=== PATIENT | male | born 1965 | race Caucasian/White ===

== ENCOUNTER 2018-10-06 06:50 | Inpatient (IN) | payer OTHER ==
[~2018-10-06] VITALS: Ht 167.6 cm; Wt 76.4 kg
[2018-10-06 07:27] LABS: BASOPHILS % 0.3 % (0.0-2.0); EOSINOPHILS % 1.3 % (0.0-5.0); HEMATOCRIT. 48.6 % (42.0-52.0); HEMOGLOBIN. 16.6 g/dL (14.0-18.0); LYMPHOCYTES % 20.9 % (20.0-50.0); MEAN CORPUSCULAR HEMOGLOBIN 31.9 pg (28.0-32.0); MEAN CORPUSCULAR VOLUME 93.1 fL (80.0-94.0); MEAN PLATELET VOLUME 7.9 fl (7.4-10.4); MONOCYTES % 9.6 % (2.0-8.0); NEUTROPHILS % 67.9 % (40.0-76.0); PLATELET 269 x1000/uL (130-400); RED BLOOD CELL COUNT 5.22 mill/uL (4.7-6.1); RED CELL DISTRIBUTION WIDTH 14.3 % (11.6-14.6)
[2018-10-06 07:36] LABS: PROTHROMBIN TIME 10.1 sec (9.1-11.1)
[2018-10-06 07:53] LABS: CHLORIDE 105 mEq/L (98-107)
[2018-10-06 07:58] LABS: ETHANOL BLOOD < 10 mg/dL
[2018-10-06 08:00] LABS: LDL CHOLESTEROL 198 mg/dL (5-100)
[2018-10-06 11:26] LABS: CLARITY URINE CLEAR (CLEAR); COLOR URINE YELLOW (YELLOW); KETONES URINE TRACE (NEGATIVE); LEUKOCYTE ESTERASE URINE NEGATIVE (NEGATIVE); NITRITE URINE NEGATIVE (NEGATIVE); OCCULT BLOOD URINE NEGATIVE (NEGATIVE); PH URINE 5.5 (4.5-8.0); PROTEIN URINE NEGATIVE (NEGATIVE); UROBILINOGEN URINE 0.2 E.U./dL (0.2-1.0)
[2018-10-06 11:51] LABS: OPIATES URINE SCREEN NEGATIVE (NEGATIVE)
[2018-10-06 11:52] LABS: *AMPHETAMINES SCREEN URINE NEGATIVE (NEGATIVE); *BARBITURATES SCREEN URINE NEGATIVE (NEGATIVE); *BENZODIAZEPINES SCREEN URINE NEGATIVE (NEGATIVE); *COCAINE SCREEN URINE NEGATIVE (NEGATIVE); CANNABINOID URINE SCREEN NEGATIVE (NEGATIVE); PHENCYCLIDINE URINE SCREEN NEGATIVE (NEGATIVE)
[2018-10-06 11:53] LABS: METHADONE URINE SCREEN NEGATIVE (NEGATIVE)
[2018-10-06] MEDS ORDERED: DIPHENHYDRAMINE 50MG/ML VIAL IV ONE (12:45)
[2018-10-06] MEDS ORDERED: TRAMADOL 50MG TABLET PO PRN (13:30)
[2018-10-06] MEDS ORDERED: CLONIDINE 0.1MG TABLET PO PRN (13:30)
[2018-10-06] MEDS ORDERED: IPRATROPIUM/ALBUTEROL 0.5-3(2.5)MG/3ML NEB INH PRN (13:30)
[2018-10-06] MEDS ORDERED: NA PHOS,M-B/NA PHOS,DI-BA ENEMA 118ML PR PRN (13:30)
[2018-10-06] MEDS ORDERED: BUTALBITAL/ACETAMINOPHEN/CAFFEINE 50/325/40MG TABLET PO PRN (13:30)
[2018-10-06] MEDS ORDERED: ONDANSETRON HCL 4MG/2ML INJ IV PRN (13:30)
[2018-10-06] MEDS ORDERED: ACETAMINOPHEN 325MG TABLET PO PRN (13:30)
[2018-10-06] MEDS ORDERED: ZOLPIDEM TARTRATE 5MG TABLET PO PRN (13:30)
[2018-10-06] MEDS ORDERED: DOCUSATE SODIUM 100MG CAPSULE PO PRN (13:30)
[2018-10-06] MEDS ORDERED: GUAIFENESIN 200MG/10ML SUGAR FREE UDC PO PRN (13:30)
[2018-10-06] MEDS ORDERED: NITROGLYCERIN 0.4MG TABLET SL SL PRN (13:30)
[2018-10-06] MEDS ORDERED: MAGNESIUM/ALUMINUM HYDROXIDE/SIMETHICONE 30ML UDC PO PRN (13:30)
[2018-10-06] MEDS ORDERED: IOHEXOL-350 100 ML BOTTLE ONE (13:52)
[2018-10-06 16:00] VITALS: BP 139/95
[2018-10-06 16:15] VITALS: BP 139/95
[2018-10-06] MEDS: ASPIRIN 325MG EC TABLET PO SCH (18:00)
[2018-10-06 18:31] LABS: CREATINE KINASE 91 IU/L (39-308)
[2018-10-06 18:32] LABS: CREATINE KINASE MB FRACTION 1.2 ng/mL (0.5-3.6)
[2018-10-06] MEDS: KETOROLAC 15MG/ML VIAL IV PRN (18:48)
[2018-10-06 20:00] VITALS: BP 131/83
[2018-10-06] MEDS: ATORVASTATIN CALCIUM 40MG TABLET PO SCH (21:00)
[2018-10-06] MEDS: FAMOTIDINE 20MG TABLET PO SCH (21:00)
[2018-10-06] MEDS: ENOXAPARIN 40MG/0.4ML SYR SUBCUT SCH (21:26)
[2018-10-06] MEDS: DEXT 5%/LACTATED RINGERS 1,000 ML IV SCH (22:13)
[2018-10-06 22:45] LABS: CREATINE KINASE 90 IU/L (39-308)
[2018-10-06 22:46] LABS: CREATINE KINASE MB FRACTION 1.1 ng/mL (0.5-3.6)
[2018-10-07] VITALS: BP 123/80
[2018-10-07 04:00] VITALS: BP 116/68
[2018-10-07 08:00] VITALS: BP 129/78
[2018-10-07] MEDS: KETOROLAC 15MG/ML VIAL IV PRN ×2 (08:56→18:20)
[2018-10-07] MEDS: ASPIRIN 325MG EC TABLET PO SCH (09:00)
[2018-10-07] MEDS: FAMOTIDINE 20MG TABLET PO SCH ×2 (09:00→21:56)
[2018-10-07 12:00] VITALS: BP 115/76
[2018-10-07] MEDS: DEXT 5%/LACTATED RINGERS 1,000 ML IV SCH (14:11)
[2018-10-07] MEDS: PYRIDOSTIGMINE BROMIDE 60MG TABLET PO SCH ×2 (14:11→21:56)
[2018-10-07 16:00] VITALS: BP 133/83
[2018-10-07 20:00] VITALS: BP 113/72
[2018-10-07] MEDS: ATORVASTATIN CALCIUM 40MG TABLET PO SCH (21:56)
[2018-10-07] MEDS: ENOXAPARIN 40MG/0.4ML SYR SUBCUT SCH (21:56)
[2018-10-08] VITALS: BP 121/82
[2018-10-08 04:00] VITALS: BP 151/79
[2018-10-08] MEDS: PYRIDOSTIGMINE BROMIDE 60MG TABLET PO SCH ×3 (05:35→21:05)
[2018-10-08] MEDS: KETOROLAC 15MG/ML VIAL IV PRN ×2 (07:01→18:59)
[2018-10-08 08:00] VITALS: BP 104/61
[2018-10-08] MEDS: DEXT 5%/LACTATED RINGERS 1,000 ML IV SCH ×3 (09:30→21:16)
[2018-10-08] MEDS: ASPIRIN 325MG EC TABLET PO SCH (10:02)
[2018-10-08] MEDS: FAMOTIDINE 20MG TABLET PO SCH ×2 (11:58→21:05)
[2018-10-08 12:00] VITALS: BP 132/72
[2018-10-08 16:00] VITALS: BP 117/76
[2018-10-08 20:00] VITALS: BP 129/85
[2018-10-08] MEDS: ATORVASTATIN CALCIUM 40MG TABLET PO SCH (21:05)
[2018-10-08] MEDS: ENOXAPARIN 40MG/0.4ML SYR SUBCUT SCH (21:07)
[2018-10-09] VITALS: BP 113/65
[2018-10-09] MEDS: KETOROLAC 15MG/ML VIAL IV PRN ×3 (02:19→21:46)
[2018-10-09 04:00] VITALS: BP 117/87
[2018-10-09] MEDS: PYRIDOSTIGMINE BROMIDE 60MG TABLET PO SCH ×3 (05:51→21:17)
[2018-10-09 08:00] VITALS: BP 115/82
[2018-10-09] MEDS: ASPIRIN 325MG EC TABLET PO SCH (08:56)
[2018-10-09] MEDS: FAMOTIDINE 20MG TABLET PO SCH ×2 (08:56→21:17)
[2018-10-09 12:00] VITALS: BP 116/80
[2018-10-09] MEDS: DEXT 5%/LACTATED RINGERS 1,000 ML IV SCH (12:34)
[2018-10-09 19:07] VITALS: BP 120/82
[2018-10-09 20:00] VITALS: BP 133/88
[2018-10-09] MEDS: ENOXAPARIN 40MG/0.4ML SYR SUBCUT SCH (21:17)
[2018-10-09] MEDS: ATORVASTATIN CALCIUM 40MG TABLET PO SCH (21:17)
[2018-10-10] MEDS: DEXT 5%/LACTATED RINGERS 1,000 ML IV SCH (02:25)
[2018-10-10 04:00] VITALS: BP 122/81
[2018-10-10] MEDS: PYRIDOSTIGMINE BROMIDE 60MG TABLET PO SCH ×2 (06:55→13:37)
[2018-10-10] MEDS: KETOROLAC 15MG/ML VIAL IV PRN ×3 (07:03→18:12)
[2018-10-10 08:00] VITALS: BP 124/88
[2018-10-10] MEDS: FAMOTIDINE 20MG TABLET PO SCH (08:15)
[2018-10-10] MEDS: ASPIRIN 325MG EC TABLET PO SCH (08:15)
[2018-10-10 12:17] VITALS: BP 128/90
[2018-10-10 16:00] VITALS: BP 124/84
[2018-10-10 18:12] VITALS: BP 124/84
[2018-10-14 09:06] LABS: AChR BLOCKING ABS SERUM 10 % (0-25)
== END 2018-10-10 20:30 | disposition home or self-care (01) | DRG 57 ==
LOC: ER 06:50 → 5WST 10:25 → EDBEDREQ 10:26 → EDBEDREQSVC 10:54 → ENRESERV 14:43
PROVIDERS: ADMIT Internal Medicine; ATTEND Internal Medicine
DX: G70.00 Myasthenia gravis without (acute) exacerbation (principal); R13.10 Dysphagia, unspecified; E78.00 Pure hypercholesterolemia, unspecified; H02.401 Unspecified ptosis of right eyelid; R13.0 Aphagia; Z86.73 Personal history of transient ischemic attack (TIA), and cerebral infarction without residual deficits; G43.909 Migraine, unspecified, not intractable, without status migrainosus
CPT/HCPCS: 36415; 70496; 70498; 70551; 71045; 80061; 80305; 80320; 82550; 82553; 82962; 83036; 83519; 83721; 84484; 92610; 93005; 93970; 96374; 96375; 97110; 97162; 97166; 97530; 97535; 99291; J1200; J1650; J1885; J7121; Q9967; G0480